=== PATIENT | female | born 1955 | race Two or more races ===

== ENCOUNTER 2018-05-19 15:37 | Inpatient (IN) | payer OTHER ==
[~2018-05-19] VITALS: Ht 162.6 cm; Wt 74.8 kg
--- OUTSIDE RECORDS SUMMARY | 2018-05-19 15:39 | XMS REPORT ---
Author Author Admin, [place] Organization [facility] Address [address] [place] [address] Phone Allergies, Adverse Reactions, Alerts Allergy Name Reaction Description Start Date Severity Status Provider CODEINE itch all over Mild Active Rosalie Hoover D.OBereket Conditions or Problems Problem Name Problem Code Onset Date Status Entry Date Provider Comment Standard Description Annotate Sinusitis - acute 461.9 Active Raina Gonzalez PMHNP Acute sinusitis, unspecified Colon cancer screening V76.51 Active Raina Gonzalez PMHNP Screening for malignant neoplasms of colon Annual exam V72.31 Active Felipa Nascimento MD Routine gynecological examination Mammogram yearly screening V76.12 Active Felipa Nascimento MD Other screening mammogram Prediabetes 790.29 Active Felipa Nascimento MD Other abnormal glucose Vaccination, flu V04.8 Active Felipa Nascimento MD Need for prophylactic vaccination and inoculation against other viral diseases Medication, termite treater helper use V58.6 Active Raina Gonzalez PMHNP Long-term (current) drug use Grief reaction 309.0 Active Felipa Nascimento MD Adjustment disorder with depressed mood Chronic kidney disease, unspecified 585.9 Active Felipa Nascimento MD Chronic kidney disease, unspecified Acid reflux disease 530.81 Active Deng Ryder MD Esophageal reflux Treated by Dr. Connor with omeperazole 40 mg po BID Elevated alkaline phosphatase 790.5 Active Deng Ryder MD Other nonspecific abnormal serum enzyme levels Hip region mass 719.65 Active Deng Ryder MD Other symptoms referable to joint of pelvic region and thigh Right side Renal cyst, right 593.2 Active Deng Ryder MD Cyst of kidney, acquired Incidental finding per Dr Coleman, requesting record of [place] Restrictive lung disease 518.89 Active Rosalie Tovar.O. Other diseases of lung, not elsewhere classified Headaches 784.0 Active Deng Ryder MD Headache Need for prophylactic vaccination against streptococcus pneumoniae (Pneumococcus) V03.82 Active Deng Ryder MD Need for prophylactic vaccination against Streptococcus pneumoniae [pneumococcus] NEED FOR PROPHYLACTIC VACCINATION AND INOCULATION, INFLUENZA V04.81 Active Deng Ryder MD Need for prophylactic vaccination and inoculation against influenza Shortness of breath 786.05 Active Deng Ryder MD Shortness of breath Anxiety disorder in conditions classified elsewhere 293.84 Active Marlon Doan MD Anxiety disorder in conditions classified elsewhere Major depressive disorder, recurrent episode, moderate degree 296.32 Active Marlon Doan MD Major depressive disorder, recurrent episode, moderate degree Obesity 278.00 Active Marlon Doan MD Obesity, unspecified Allergic rhinitis 477.9 Active Rosalie Tovar.OBereket Allergic rhinitis, cause unspecified Dyslipidemia 272.4 Active Rosalie Tovar.O. Other and unspecified hyperlipidemia Hypertension 401.9 Active Rosalie Tovar.Mary. Unspecified essential hypertension Need for prophylactic vaccination with unspecified combined vaccine V06.[address]ilar [facility] [employer] Need for prophylactic vaccination with unspecified combined vaccine Need for prophylactic vaccination with unspecified combined vaccine ICD-V06.9 Inactive Marcy Rodriguez BIBI Pneumonia ICD-486 Inactive eFlipa Nascimento MD Cough ICD-786.2 Inactive Felipa Nascimento MD Sinusitis, acute ICD-461.9 Inactive Felipa Nascimento MD Viral URI ICD-465.9 Inactive Juancarlos Menendez MD Rib pain, right sided ICD-786.50 Inactive Felipa Nascimento MD Pharyngitis, acute ICD-462 Inactive Felipa Nascimento MD Abdominal pain, epigastric ICD-789.06 Inactive Felipa Nascimento MD DIAGNOSIS DEFERRED, AXIS II ICD-799.9 Inactive Marlon Doan MD R/OPOLYSUBSTANCE DEPENDENCE ICD-304.80 Inactive Marlon Doan MD DEPRESSIVE DISORDER NOS ICD-311 Inactive Marlno Doan MD R/OANXIETY DISORDER NOS ICD-300.00 Inactive Marlon Doan MD Anxiety ICD-300.00 Inactive Marlon Doan MD Depression, major ICD-296.20 Inactive Marlon Doan MD Pneumonia 486 Resolved Felipa Nascimento MD Pneumonia, organism unspecified Cough 786.2 Resolved Felipa Nascimento MD Cough Sinusitis, acute 461.9 Resolved Felipa Nascimento MD Acute sinusitis, unspecified Viral URI 465.9 Resolved Juancarlos Menendez MD Acute upper respiratory infections of unspecified site Rib pain, right sided 786.50 Resolved Felipa Nascimento MD Unspecified chest pain Pharyngitis, acute 462 Resolved Felipa Nascimento MD Acute pharyngitis Abdominal pain, epigastric 789.06 Resolved Felipa Nascimento MD Abdominal pain, epigastric DIAGNOSIS DEFERRED, AXIS II 799.9 Resolved Marlon Doan MD Other unknown and unspecified cause of morbidity or mortality R/OPOLYSUBSTANCE DEPENDENCE 304.80 Resolved Marlon Doan MD Combinations of drug dependence excluding opioid type drug, unspecified use DEPRESSIVE DISORDER NOS 311 Resolved Marlon Doan MD Depressive disorder, not elsewhere classified R/OANXIETY DISORDER NOS 300.00 Resolved Marlon Doan MD Anxiety state, unspecified Anxiety 300.00 Resolved Marlon Doan MD Anxiety state, unspecified Depression, major 296.20 Resolved Marlon Doan MD Major depressive disorder, single episode, unspecified degree Medication List Medication Instructions Start Date Stop Date Generic Name NDC Status Provider Patient Instruction WELLBUTRIN XL 150 MG ORAL TABLET EXTENDED RELEASE 24 HOUR Take 1 tablet By Mouth QAM BUPROPION HCL 79967910460 Active Raina ZALDIVAR Active ATORVASTATIN CALCIUM 40 MG ORAL TABLET one tablet once daily ATORVASTATIN CALCIUM 64242379078 Active Felipa Nascimento MD Active CHLORDIAZEPOXIDE-AMITRIPTYLINE 5-12.5 MG ORAL TABLET Take 1/2 tablet By Mouth QHS As Needed CHLORDIAZEPOXIDE-AMITRIPTYLINE 10556407530 Active Raina ZALDIVAR Active BENTYL 10 MG ORAL CAPSULE one tablet four times daily DICYCLOMINE HCL 64927998450 Active Felipa Nascimento MD Active HYDROCHLOROTHIAZIDE 12.5 MG ORAL CAPSULE 1 by mouth every day HYDROCHLOROTHIAZIDE 96977715216 Active Felipa Nascimento MD Active LATUDA 60 MG ORAL TABLET Take 1 tablet By Mouth QPM with food LURASIDONE HCL 33885292045 Active Raina Gonzalez PMHNP Active PROAIR HFA 108 (90 Base) MCG/ACT INHALATION AEROSOL SOLUTION 2 puffs Every 4-6 hours As Needed for shortness of breath ALBUTEROL SULFATE 87086650640 Active Felipa Nascimento MD Active BUSPIRONE HCL 15 MG ORAL TABLET 1 tab By Mouth TID BUSPIRONE HCL 55447018958 Active Raina Gonzalez PMRUFINOP Active FLUOXETINE HCL 40 MG ORAL CAPSULE Take 2 tablets By Mouth QAM FLUOXETINE HCL 50842101299 Active Raina Gonzalez PMHNP Active FLONASE 50 MCG/ACT NASAL SUSPENSION 2 sprays each nostril every day FLUTICASONE PROPIONATE (NASAL) 51537422263 Active Felipa Nascimento MD Active OMEPRAZOLE 40 MG ORAL CAPSULE DELAYED RELEASE 1 By Mouth Every Day OMEPRAZOLE 34867956386 Active Juan J Armenta MD Active TAMIFLU 75 MG ORAL CAPSULE one tablet twice daily TAMIFLU 75 MG ORAL CAPSULE 435286 OSELTAMIVIR PHOSPHATE Inactive MIRTAZAPINE 15 MG ORAL TABLET Take 1 tablet By Mouth QHS MIRTAZAPINE 15 MG ORAL TABLET 164810 MIRTAZAPINE Inactive AZITHROMYCIN 250 MG ORAL TABLET 2 tablets by mouth on day one then one tablet by mouth each day for a total of 5 days AZITHROMYCIN 250 MG ORAL TABLET 056749 AZITHROMYCIN Inactive AMOXICILLIN-POT CLAVULANATE 500-125 MG ORAL TABLET 1 tab By Mouth Twice a Day x 10 days AMOXICILLIN-POT CLAVULANATE 500-125 MG ORAL TABLET 157515 AMOXICILLIN-POT CLAVULANATE Inactive BENZONATATE 100 MG ORAL CAPSULE 1 cap By Mouth Three Times a Day As Needed for cough BENZONATATE 100 MG ORAL CAPSULE 024373 BENZONATATE Inactive BACLOFEN 10 MG ORAL TABLET one tablet by mouth three times a day as needed for muscle spasm BACLOFEN 10 MG ORAL TABLET 944455 BACLOFEN Inactive CHLORDIAZEPOXIDE-AMITRIPTYLINE 10-25 MG ORAL TABLET Take 1/2 po qam and 1 tab By Mouth take at bedtime As Needed insomnia CHLORDIAZEPOXIDE- AMITRIPTYLINE 10-25 MG ORAL TABLET 490527 CHLORDIAZEPOXIDE-AMITRIPTYLINE Inactive CHLORDIAZEPOXIDE-AMITRIPTYLINE 5-12.5 MG ORAL TABLET 1 tab By Mouth take at bedtime As Needed insomnia [only 3 or 4 nights of the week] CHLORDIAZEPOXIDE- AMITRIPTYLINE 5-12.5 MG ORAL TABLET 935076 CHLORDIAZEPOXIDE-AMITRIPTYLINE Inactive RISPERDAL 0.5 MG ORAL TABLET Take 1 tablet By Mouth Twice a Day for hallucinations RISPERDAL 0.5 MG ORAL TABLET 112936 RISPERIDONE Inactive KEFLEX 250 MG ORAL CAPSULE 1 by mouth 4 times a day for infection. KEFLEX 250 MG ORAL CAPSULE 912981 CEPHALEXIN Inactive MEDROL 4 MG ORAL TABLET THERAPY PACK take as directed on dospak for anti-inflamatory effecct MEDROL 4 MG ORAL TABLET THERAPY PACK 288746 METHYLPREDNISOLONE Inactive PROZAC 40 MG ORAL CAPSULE Take 1 capsule By Mouth qam PROZAC 40 MG ORAL CAPSULE 504955 FLUOXETINE HCL Inactive PROZAC 20 MG ORAL CAPSULE take 1 tab By Mouth Every Morning PROZAC 20 MG ORAL CAPSULE 979149 FLUOXETINE HCL Inactive VISTARIL 25 MG ORAL CAPSULE take 1 tab By Mouth Four Times a Day As Needed VISTARIL 25 MG ORAL CAPSULE 649624 HYDROXYZINE PAMOATE Inactive SIMVASTATIN 40 MG ORAL TABLET 1 by mouth every night SIMVASTATIN 40 MG ORAL TABLET 684223 SIMVASTATIN Inactive BENTYL 20 MG ORAL TABLET 1 by mouth 4 times a day BENTYL 20 MG ORAL TABLET DICYCLOMINE HCL Inactive LOPID 600 MG ORAL TABLET 1 by mouth twice a day LOPID 600 MG ORAL TABLET 850920 GEMFIBROZIL Inactive METOPROLOL TARTRATE 25 MG ORAL TABLET 1 by mouth twice a day METOPROLOL TARTRATE 25 MG ORAL TABLET 131640 METOPROLOL TARTRATE Inactive PRINIVIL 20 MG ORAL TABLET 1 by mouth every day PRINIVIL 20 MG ORAL TABLET 623806 LISINOPRIL Inactive SERTRALINE HCL 100 MG ORAL TABLET SERTRALINE HCL 100 MG ORAL TABLET 047396 SERTRALINE HCL Inactive TAMIFLU 75 MG ORAL CAPSULE one tablet twice daily OSELTAMIVIR PHOSPHATE 22663557032 No Longer Active Raina Gonzalez PMHNP Active MIRTAZAPINE 15 MG ORAL TABLET Take 1 tablet By Mouth QHS MIRTAZAPINE 79632936344 No Longer Active Raina Gonzalez PMHNP Active AZITHROMYCIN 250 MG ORAL TABLET 2 tablets by mouth on day one then one tablet by mouth each day for a total of 5 days AZITHROMYCIN 25112618763 No Longer Active Felipa Nascimento MD Active AMOXICILLIN-POT CLAVULANATE 500-125 MG ORAL TABLET 1 tab By Mouth Twice a Day x 10 days AMOXICILLIN-POT CLAVULANATE 90531253979 No Longer Active Felipa Nascimento MD Active BENZONATATE 100 MG ORAL CAPSULE 1 cap By Mouth Three Times a Day As Needed for cough BENZONATATE 91590133040 No Longer Active Felipa Nascimento MD Active BACLOFEN 10 MG ORAL TABLET one tablet by mouth three times a day as needed for muscle spasm BACLOFEN 86584961668 No Longer Active Raina Gonzalez HNP Active CHLORDIAZEPOXIDE-AMITRIPTYLINE 10-25 MG ORAL TABLET Take 1/2 po qam and 1 tab By Mouth take at bedtime As Needed insomnia CHLORDIAZEPOXIDE-AMITRIPTYLINE 41780865525 No Longer Active Raina REYNAGAHNP Active CHLORDIAZEPOXIDE-AMITRIPTYLINE 5-12.5 MG ORAL TABLET 1 tab By Mouth take at bedtime As Needed insomnia [only 3 or 4 nights of the week] CHLORDIAZEPOXIDE-AMITRIPTYLINE 97135382911 No Longer Active Marlon Doan MD Active RISPERDAL 0.5 MG ORAL TABLET Take 1 tablet By Mouth Twice a Day for hallucinations RISPERIDONE 68275526460 No Longer Active Marlon Doan MD Active KEFLEX 250 MG ORAL CAPSULE 1 by mouth 4 times a day for infection. CEPHALEXIN 69526087921 No Longer Active Deng Ryder MD Active MEDROL 4 MG ORAL TABLET THERAPY PACK take as directed on dospak for anti-inflamatory effecct METHYLPREDNISOLONE 74166429224 No Longer Active Deng Ryder MD Active PROZAC 40 MG ORAL CAPSULE Take 1 capsule By Mouth qam FLUOXETINE HCL 86703776243 No Longer Active Marlon Doan MD Active PROZAC 20 MG ORAL CAPSULE take 1 tab By Mouth Every Morning FLUOXETINE HCL 37794559303 No Longer Active Latha Ogunmokun Active VISTARIL 25 MG ORAL CAPSULE take 1 tab By Mouth Four Times a Day As Needed HYDROXYZINE PAMOATE 10973561192 No Longer Active Latha Ogunmokun Active ZOLOFT 50 MG ORAL TABLET take 3 tab By Mouth Every Morning SERTRALINE HCL 40487091671 No Longer Active Latha Ogunmokun Active SIMVASTATIN 40 MG ORAL TABLET 1 by mouth every night SIMVASTATIN 50090471530 No Longer Active Felipa Nascimento MD Active BENTYL 20 MG ORAL TABLET 1 by mouth 4 times a day DICYCLOMINE HCL 48810972181 No Longer Active Felipa Nascimento MD Active LOPID 600 MG ORAL TABLET 1 by mouth twice a day GEMFIBROZIL 64130914889 No Longer Active Marlon Doan MD Active METOPROLOL TARTRATE 25 MG ORAL TABLET 1 by mouth twice a day METOPROLOL TARTRATE 76006106946 No Longer Active Yanelis Park MD Active PRINIVIL 20 MG ORAL TABLET 1 by mouth every day LISINOPRIL 71493650480 No Longer Active Marlon Doan MD Active SERTRALINE HCL 100 MG ORAL TABLET SERTRALINE HCL 91142074063 No Longer Active Yanelis Park MD Active Immunizations Vaccine Administration Date Value Standard Description influenza immunization (Flu Vax) has been administered given influenza virus vaccine, unspecified formulation influenza immunization (Flu Vax) has been administered given influenza virus vaccine, unspecified formulation influenza immunization (Flu Vax) has been administered given influenza virus vaccine, unspecified formulation pneumococcal immunization administered given pneumococcal polysaccharide vaccine, 23 valent Tetanus toxoid, reduced diphtheria toxoid and acellular Pertussis vaccine, absorbed (TdaP) given given tetanus toxoid, reduced diphtheria toxoid, and acellular pertussis vaccine, adsorbed varicella shingles vaccine given varicella virus vaccine influenza immunization (Flu Vax) has been administered given influenza virus vaccine, unspecified formulation Vital Signs Date Name Value Unit Range Description blood pressure, diastolic 84 mm[Hg] BP koenig blood pressure, systolic 142 mm[Hg] BP sys height E&M 64 [in_us] Bdy height pulse rate E&M 121 /min Heart rate weight E&M 178.50 [lb_av] Weight Measured blood pressure, diastolic, second observation 117 mm[Hg] BP koenig blood pressure, diastolic 96 mm[Hg] BP koenig blood pressure, systolic, second observation 170 mm[Hg] BP sys blood pressure, systolic 164 mm[Hg] BP sys height E&M 64 [in_us] Bdy height pulse rate E&M 86 /min Heart rate respiratory rate E&M 18 /min Resp rate temperature E&M 98.2 [degF] Body temperature weight E&M 183.40 [lb_av] Weight Measured blood pressure, diastolic 89 mm[Hg] BP koenig blood pressure, systolic 139 mm[Hg] BP sys height E&M 64 [in_us] Bdy height pulse rate E&M 86 /min Heart rate weight E&M 197 [lb_av] Weight Measured blood pressure, diastolic 80 mm[Hg] BP koenig blood pressure, systolic 132 mm[Hg] BP sys height E&M 64 [in_us] Bdy height pulse rate E&M 87 /min Heart rate respiratory rate E&M 18 /min Resp rate temperature E&M 98.4 [degF] Body temperature weight E&M 200.20 [lb_av] Weight Measured blood pressure, diastolic 85 mm[Hg] BP koenig blood pressure, systolic 136 mm[Hg] BP sys height E&M 64 [in_us] Bdy height pulse rate E&M 93 /min Heart rate respiratory rate E&M 18 /min Resp rate temperature E&M 98.4 [degF] Body temperature weight E&M 207.40 [lb_av] Weight Measured blood pressure, diastolic 84 mm[Hg] BP koenig blood pressure, systolic 120 mm[Hg] BP sys height E&M 64 [in_us] Bdy height pulse rate E&M 91 /min Heart rate weight E&M 209 [lb_av] Weight Measured Diagnostic Results Date Name Value Unit Range Description Lab Report: CBC With Differential/Platelet, Comp. Metabolic Panel (14), ... - Chemistry thyroid stimulating hormone, serum 1.960 u[iU]/mL 0.450-4.500 Lab Report: Comp. Metabolic Panel (14), Lipid Panel, Hemoglobin A1c - Chemistry very low density lipoproteins 31 mg/dL 5-40 chloride, serum 100 mmol/L 96-106 urea nitrogen, blood 15 mg/dL 8-27 Lab Report: CBC With Differential/Platelet, Comp. Metabolic Panel (14), ... - Hematology mean corpuscular hemoglobin concentration, RBC 31.8 G/DL % 31.5-35.7 erythrocyte (RBC) count 4.56 X10E6/UL 10*6/mm3 3.77-5.28 Lab Report: CBC With Differential/Platelet, Comp. Metabolic Panel (14), ... - Chemistry Absolute Neutrophils 3.7 X10E3/UL 10*3/uL 1.4-7.0 Lab Report: Comp. Metabolic Panel (14), Lipid Panel, Sedimentation Rate- ... - Hematology erythrocyte sedimentation rate 4 mm/h 0-40 Lab Report: Comp. Metabolic Panel (14), Lipid Panel, Hemoglobin A1c - Chemistry LDL cholesterol, serum 89 mg/dL 0-99 urea nitrogen/creatinine ratio, serum 14 12-28 Lab Report: CBC With Differential/Platelet, Comp. Metabolic Panel (14), ... - Hematology mean corpuscular volume, RBC 86 fL 79-97 Lab Report: Comp. Metabolic Panel (14), Lipid Panel, Hemoglobin A1c - Chemistry HDL cholesterol, serum 66 mg/dL >39 Lab Report: CBC With Differential/Platelet, Comp. Metabolic Panel (14), ... - Hematology monocytes as percent of blood leukocytes 8 % Lab Report: Comp. Metabolic Panel (14), Lipid Panel, Hemoglobin A1c - Chemistry albumin/globulin ratio, serum 2.0 1.2-2.2 creatinine, serum 1.11 mg/dL 0.57-1.00 cholesterol, serum 186 mg/dL 045-164 2334/10/26 bilirubin, serum, total <0.2 mg/dL mg/dL 0.0-1.2 Lab Report: CBC With Differential/Platelet, Comp. Metabolic Panel (14), ... - Hematology Eosinophil Absolute Count 0.3 X10E3/UL 10*3/uL 0.0-0.4 Lab Report: Comp. Metabolic Panel (14), Lipid Panel, Hemoglobin A1c - Chemistry aspartate aminotransferase (SGOT), serum 31 U/L 0-40 Lab Report: CBC With Differential/Platelet, Comp. Metabolic Panel (14), ... - Hematology red blood cell distribution width 15.6 % 12.3-15.4 leukocyte count, blood 6.6 X10E3/UL 10*3/mm3 3.4-10.8 Lab Report: Comp. Metabolic Panel (14), Lipid Panel, Hemoglobin A1c - Chemistry potassium, serum 4.3 mmol/L 3.5-5.2 albumin, serum 4.3 g/dL 3.6-4.8 Lab Report: CBC With Differential/Platelet, Comp. Metabolic Panel (14), ... - Chemistry immature granulocytes, percentage of total cells, blood 0 % Lab Report: CBC With Differential/Platelet, Comp. Metabolic Panel (14), ... - Hematology lymphocyte count, blood, automated 2.0 X10E3/UL 10*3/mm3 0.7-3.1 hematocrit, blood 39.3 % 34.0-46.6 Lab Report: Comp. Metabolic Panel (14), Lipid Panel, Hemoglobin A1c - Chemistry sodium, serum 142 mmol/L 134-144 Lab Report: CBC With Differential/Platelet, Comp. Metabolic Panel (14), ... - Hematology neutrophils as percent of blood leukocytes 57 % basophils as percent of blood leukocytes 1 % Lab Report: Comp. Metabolic Panel (14), Lipid Panel, Hemoglobin A1c - Chemistry carbon dioxide, venous blood 24 mmol/L 20-29 triglyceride, serum, fasting 155 mg/dL 0-149 calcium, serum 9.2 mg/dL 8.7-10.3 alanine aminotransferase (SGPT), serum 31 U/L 0-32 Lab Report: CBC With Differential/Platelet, Comp. Metabolic Panel (14), ... - Hematology mean corpuscular hemoglobin, RBC 27.4 pg 26.6-33.0 Lab Report: Comp. Metabolic Panel (14), Lipid Panel, Hemoglobin A1c - Chemistry protein, total, serum 6.5 g/dL 6.0-8.5 alkaline phosphatase, serum 127 U/L 39-117 Lab Report: CBC With Differential/Platelet, Comp. Metabolic Panel (14), ... - Hematology hemoglobin, blood 12.5 g/dL 11.1-15.9 Lab Report: Comp. Metabolic Panel (14), Lipid Panel, Sedimentation Rate- ... - Chemistry c-reactive protein, quantitative, serum 1.0 mg/L 0.0-4.9 Lab Report: CBC With Differential/Platelet, Comp. Metabolic Panel (14), ... - Hematology lymphocytes as percent of blood leukocytes 30 % Lab Report: Comp. Metabolic Panel (14), Lipid Panel, Hemoglobin A1c - Chemistry hemoglobin A1C, blood, as % of total hemoglobin 5.9 % 4.8-5.6 Lab Report: Comp. Metabolic Panel (14), Lipid Panel, Hemoglobin A1c - Genetics/fertility eGFR if 61 mL/min/1.73m2 >59 Lab Report: CBC With Differential/Platelet, Comp. Metabolic Panel (14), ... - Hematology basophil count, absolute 0.0 x10E3/uL 0.0-0.2 Lab Report: Comp. Metabolic Panel (14), Lipid Panel, Hemoglobin A1c - Chemistry globulin, serum 2.2 1.5-4.5 Estimated Glomerular Filtration Rate (calc) 53 mL/min/1.73m2 >59 Lab Report: CBC With Differential/Platelet, Comp. Metabolic Panel (14), ... - Chemistry thyroxine, serum, total 5.6 ug/dL 4.5-12.0 triiodothyronine (T3), serum 91 ng/dL 71-180 Lab Report: CBC With Differential/Platelet, Comp. Metabolic Panel (14), ... - Hematology eosinophils as percent of blood leukocytes 4 % Lab Report: Comp. Metabolic Panel (14), Lipid Panel, Hemoglobin A1c - Chemistry blood glucose, random 85 mg/dL 65-99 Lab Report: CBC With Differential/Platelet, Comp. Metabolic Panel (14), ... - Hematology monocyte count, blood, automated 0.5 X10E3/UL 10*3/uL 0.1-0.9 platelet count 259 X10E3/UL 10*3/mm3 150-379 Encounters Date Encounter Provider Code Facility 13:49:44 [employer] PRESCRIPTION CLERK Est Patient Exp Problem - 80456 Raina Gonzalez PMHNP CPT-73432 [facility] 07:57:38 [employer] PRESCRIPTION CLERK Est Patient Nurse - Only Visit - 29847 Letitia LEWISN CPT-76827 [facility] 16:00:52 [employer] PRESCRIPTION CLERK Ofc Vst, Est Level III Felipa Nascimento MD CPT-12403 [facility] 11:36:37 CDT Est Patient Exp Problem - 05197 Felipa Nascimento MD CPT-71785 [facility] 17:56:32 CDT Est Patient Exp Problem - 17222 Raina Gonzalez PMHNP CPT-87886 [facility] 14:50:52 [employer] PRESCRIPTION CLERK Est Patient Exp Problem - 94134 Raina Gonzalez PMHNP CPT-66445 [facility] 17:19:42 [employer] AND [employer] PRESCRIPTION CLERK Est Patient Exp Problem - 81136 Raina Gonzalez PMHNP CPT-72563 [facility] 14:36:37 CDT Est Patient Detailed - 64881 Raina Gonzalez PMHNP CPT-50649 [facility] 13:14:01 CDT Est Patient Exp Problem - 77466 Felipa Nascimento MD CPT-50262 [facility] 12:07:25 CDT Est Patient Exp Problem - 02564 Raina Gonzalez PMHNP CPT-88052 [facility] 13:10:06 CDT Est Patient Detailed - 11039 Felipa Nascimento MD CPT-76499 [facility] 14:38:14 CDT Est Patient Exp Problem - 39423 Raina Carlos HN CPT-33438 [facility] 16:15:35 [employer] PRESCRIPTION CLERK Est Patient Exp Problem - 79822 Felipa Nascimento MD CPT-36817 [facility] 13:44:48 [employer] PRESCRIPTION CLERK Est Patient Exp Problem - 98122 Marlon Doan MD CPT-61354 [facility] 17:26:36 [employer] PRESCRIPTION CLERK Est Patient Exp Problem - 74708 Felipa Nascimento MD CPT-51651 [facility] 15:56:28 [employer] PRESCRIPTION CLERK Est Patient Exp Problem - 83333 Marlon Doan MD CPT-48750 [facility] 15:23:54 CDT Est Patient Exp Problem - 25734 Marlon Doan MD CPT-97775 [facility] 14:37:27 CDT Est Patient Exp Problem - 22820 Marlon Doan MD CPT-74217 [facility] 10:41:12 CDT Est Patient Problem Focus - 83430 Felipa Nascimento MD CPT-50103 [facility] 15:36:56 CDT Est Patient Exp Problem - 73028 Marlon Doan MD CPT-68034 [facility] 10:01:07 CDT Est Patient Exp Problem - 57527 Juancarlos Menendez MD CPT-88685 [facility] 12:34:46 CDT Est Patient Exp Problem - 72465 Marlon Doan MD CPT-78995 [facility] 10:45:48 [employer] PRESCRIPTION CLERK Est Patient Problem Focus - 57288 Marlon Doan MD CPT-31596 [facility] 11:58:17 [employer] PRESCRIPTION CLERK Est Patient Exp Problem - 20460 Zulema Montemayor MD CPT-16716 [facility] 15:35:52 [employer] PRESCRIPTION CLERK Est Patient Exp Problem - 08044 Raina Trotter DO CPT-68477 [facility] 10:55:45 [employer] PRESCRIPTION CLERK Est Patient Problem Focus - 16032 Marlon Doan MD CPT-52094 [facility] 23:15:19 [employer] PRESCRIPTION CLERK Est Patient Exp Problem - 09879 Yanelis Park MD CPT-66039 [facility] 15:51:59 [employer] PRESCRIPTION CLERK Est Patient Exp Problem - 88730 Deng Ryder MD CPT-88700 [facility] 10:31:08 CDT Est Patient Problem Focus - 83115 Marlon Doan MD CPT-71226 [facility] 14:58:46 CDT Est Patient Exp Problem - 14750 Hayder Kaur MD CPT-99938 [facility] 16:31:15 CDT Est Patient Problem Focus - 57596 Marlon Doan MD CPT-27264 [facility] 14:38:15 CDT Est Patient Exp Problem - 02851 Latha Ogunmogarryun CPT-48999 [facility] 14:53:37 CDT Est Patient Detailed - 20933 Yanelis Park MD CPT-08456 [facility] 18:23:35 CDT Est Patient Exp Problem - 90102 Rosalie Hoover D.O. CPT-67085 [facility] Procedures Code Procedure Name Date Entry Date Standard Description CPT-99810 INFLUENZA VACCINE QUADRIVALENT 3 YRS PLUS IM 07:57:39 LENS AND FRAMES PRESCRIPTION CLERK CPT-53247 Admin of Vaccine - Injection - 1 07:57:39 LENS AND FRAMES PRESCRIPTION CLERK CPT-06160 INFLUENZA VACCINE QUADRIVALENT 3 YRS PLUS IM 16:17:52 LENS AND FRAMES PRESCRIPTION CLERK CPT-78894 Est Patient Well Exam (40 - 64 Yrs) - 31052 16:17:49 LENS AND FRAMES PRESCRIPTION CLERK CPT-04805 TDAP 14:35:28 LENS AND FRAMES PRESCRIPTION CLERK CPT-15392 Zoster - Shingles 14:35:28 LENS AND FRAMES PRESCRIPTION CLERK CPT-53168 Pneumovax Vaccine PPSV23 14:35:28 LENS AND FRAMES PRESCRIPTION CLERK CPT-61424 INFLUENZA VACCINE QUADRIVALENT 3 YRS PLUS IM 14:34:43 LENS AND FRAMES PRESCRIPTION CLERK CPT-91440 BRNCDILAT RSPSE SPMTRY PRE&POST-BRNCDILAT ADMN 15:35:54 LENS AND FRAMES PRESCRIPTION CLERK CPT-67999 Prevnar (PCV13) IM 15:52:05 LENS AND FRAMES PRESCRIPTION CLERK CPT-76064 Influenza - Adult - Injection 15:52:05 LENS AND FRAMES PRESCRIPTION CLERK CPT-75709 Diagnostic evaluation with medical - 16054 17:07:48 CDT
[2018-05-19] MEDS ORDERED: SODIUM CHLORIDE 0.9% 1000ML 1,000 ML IV STA (16:02)
[2018-05-19 16:36] LABS: BILIRUBIN,URINE 1+ (NEGATIVE); CLARITY,URINE SL CLOUDY (CLEAR); COLOR,URINE YELLOW (YELLOW); KETONES,URINE TRACE (NEGATIVE); LEUKOCYTE ESTERASE ,URINE TRACE (NEGATIVE); NITRITE,URINE NEGATIVE (NEGATIVE); PROTEIN,URINE DIPSTICK 1+ (NEGATIVE); URINE UROBILINOGEN 0.2 mg/dL (0.2 - 1)
[2018-05-19 16:38] LABS: BASOPHILS % 0.4 % (0.0-1.0); EOSINOPHILS # (AUTO) 0.1 (0.0-0.4); EOSINOPHILS % 0.9 % (0.0-6.0); HEMATOCRIT 42.8 % (34.2-44.1); HEMOGLOBIN 14.3 g/dL (12.0-16.0); LYMPHOCYTES % 20.1 % (18.0-39.1); MEAN CORPUSCULAR HEMOGLOBIN 28.7 pg (28-32); MEAN CORPUSCULAR HGB CONC 33.4 g/dL (31-35); MEAN CORPUSCULAR VOLUME 85.9 fL (81-99); MONOCYTES # (AUTO) 0.8 (0.2-0.8); MONOCYTES % 7.4 % (4.4-11.3); NEUTROPHILS # (AUTO) 7.2 (2.1-6.9); NEUTROPHILS % 70.7 % (38.7-80.0); PLATELET COUNT 286 x10e3/uL (140-360); RED BLOOD COUNT 4.98 x10e6/uL (3.6-5.1); RED CELL DISTRIBUTION WIDTH 14.6 % (11.7-14.4)
[2018-05-19 16:47] LABS: INR 0.87; PROTHROMBIN TIME 12.6 seconds (11.9-14.5)
[2018-05-19 16:48] LABS: PARTIAL THROMBOPLASTIN TIME 24.1 seconds (23.8-35.5)
[2018-05-19 16:57] LABS: ALBUMIN 3.9 g/dL (3.5-5.0); ALBUMIN/GLOBULIN RATIO 1.3 (0.8-2.0); ANION GAP 15.3 mmol/L (8-16); CALCIUM 10.2 mg/dL (8.4-10.2); CREATININE, SERUM 1.73 mg/dL (0.57-1.11); POTASSIUM 3.3 mmol/L (3.5-5.1)
[2018-05-19 16:59] LABS: WBC,URINE (MAN) 0-5 /HPF (0-5)
[2018-05-19 17:00] LABS: AMORPHOUS SEDIMENT,URINE MANY (FEW); BACTERIA,URINE MODERATE /HPF; EPITHELIAL CELLS,URINE MANY /LPF; MUCUS,URINE MANY (RARE); TRANSITIONAL EPI CELLS,URINE MODERATE
[2018-05-19 17:18] LABS: CREATINE KINASE MB 0.7 ng/mL (0-5.0); THYROID STIMULATING HORMONE 2.046 uIU/mL (0.350-4.940)
--- NOTE | 2018-05-19 17:50 | Diagnostic Imaging Report ---
EXAMINATION: CHEST 2 VIEWS INDICATION: ^SOB ^[id number] ^1730 COMPARISON: None FINDINGS: PA and lateral views TUBES and LINES: None. LUNGS: Lungs are well inflated. There is no evidence of pneumonia or pulmonary edema. Biapical scarring. PLEURA: No pleural effusion or pneumothorax. HEART AND MEDIASTINUM: The cardiomediastinal silhouette is unremarkable. BONES AND SOFT TISSUES: No acute osseous lesion. Soft tissues are unremarkable. UPPER ABDOMEN: No free air under the diaphragm. IMPRESSION: No acute thoracic abnormality. Signed by: Dr. Jose Guadalupe Kerr MD on 05/19/2018 5:47 PM
[2018-05-19] MEDS ORDERED: SODIUM CHLORIDE 0.9% 1000ML 1,000 ML IV SCH (18:15)
[2018-05-19] MEDS ORDERED: NITROGLYCERIN 0.4 MG SUBL SL ONE (18:15)
--- NOTE | 2018-05-19 18:47 | NUR ---
nitro paste to right chest wall 100/66 98 97%
[2018-05-19] MEDS ORDERED: NITROGLYCERIN 2% OINT 1 GM PKT ONE (18:54)
[2018-05-19] MEDS ORDERED: NITROGLYCERIN 2% OINT 1 GM PKT TOP ONE (19:15)
[2018-05-19] MEDS ORDERED: ASPIRIN 81 MG CHEW TAB PO ONE (19:30)
[2018-05-19] MEDS ORDERED: MORPHINE SULFATE 2 MG/ML SYR 1ML IV PRN (19:30)
[2018-05-19] MEDS ORDERED: NITROGLYCERIN 0.4 MG SUBL SL PRN (19:30)
--- OUTSIDE RECORDS SUMMARY | 2018-05-19 20:15 | XMS REPORT ---
Author Author [facility] Address Unknown Phone Unavailable Care Team Providers Care Medicare Specialist Name Role Phone Madhuri ELLIS Unavailable Unavailable Problems This patient has no known problems. Allergies, Adverse Reactions, Alerts This patient has no known allergies or adverse reactions. Medications This patient has no known medications. Results Test Description Test Time Test Comments Text Results Atomic Results Result Comments CHEST 2 VIEWS 2018-05-19 17:46:00 [facility] [address] [address] Patient Name: SHARDA JADE MR #: [id number] : 1955 Age/Sex: 62/F Req #: [id number] Adm Physician: Ordered by: YELENA ELLIS MD Report #: [id number] Location: ER Room/Bed: Procedure: [id number] DX/CHEST 2 VIEWS Exam Date: 05/19/18 Exam Time: 1730 REPORT STATUS: Signed EXAMINATION: CHEST 2 VIEWS INDICATION: SOB [id number] COMPARISON: None FINDINGS: PA and lateral views TUBES and LINES: None. LUNGS: Lungs are well inflated. There is no evidence of pneumonia or pulmonary edema. Biapical scarring. PLEURA: No pleural effusion or pneumothorax. HEART AND MEDIASTINUM: The cardiomediastinal silhouette is unremarkable. BONES AND SOFT TISSUES: No acute osseous lesion. Soft tissues are unremarkable. UPPER ABDOMEN: No free air under the diaphragm. IMPRESSION: No acute thoracic abnormality. Signed by: Dr. Jose Guadalupe Kerr MD on 05/19/2018 5:47 PM Dictated By: JOSE GUADALUPE KERR MD 46 Transcribed By: GIGI on 05/19/181746 COPY TO: YELENA ELLIS MD
[2018-05-19] MEDS ORDERED: ZOLPIDEM TARTRATE 10 MG TAB PO PRN (20:30)
--- NOTE | 2018-05-19 21:42 | Diagnostic Imaging Report ---
CT chest without enhancement CPT code: 76986 INDICATION: Shortness of breath TECHNIQUE: Thin collimation axial images obtained from the thoracic inlet to the level of the diaphragm without intravenous contrast. Dose reduction techniques used: Automated exposure control, adjustment of the mAs and/or kVp according to patient size, standardized low-dose protocol, and/or iterative reconstruction technique. RADIATION DOSE: Total DLP: 512.78 mGy*cm Estimated effective dose: (DLP x 0.015 x size factor) mSv CTDIvol has been reviewed. It is below the limits set by the Radiation Protocol Committee (RPC). COMPARISON: Chest x-ray 05/19/2018. CHEST FINDINGS: Lymph nodes: No enlarged axillary, supraclavicular, mediastinal, or hilar lymph nodes. Thyroid: Normal in size without mass in the visualized parenchyma.. Mediastinum: The heart is normal in size. The ascending aorta measures 3.2 cm. The main pulmonary artery measures 2.5 cm. There is a tiny simple pericardial effusion. Mild burden of coronary artery atherosclerosis. The esophagus is normal. Lungs: Right: Minimal apical pleural-parenchymal thickening. Air-containing cyst in the apex measures 7 mm. No significant air trapping. Pleural-based nodule in the lateral upper lobe measures 3 mm (series 3, image 23). No infiltrate. Left: Minimal apical pleural-parenchymal thickening. No significant air trapping. 1 to 2 mm pleural-based nodule in the lateral lower lobe (series 3, image 75). No infiltrates. Pleura: No pleural effusion or pleural based mass. Airways: Mild diffuse calcifications. No filling defects. No mural thickening ABDOMEN FINDINGS: The gallbladder is absent. No mass or lymphadenopathy in the visualized portions. Bones: Mild degenerative changes. Trace levoscoliosis the mid lumbar spine may be positional. No lytic or blastic lesions. Soft tissues: Unremarkable. IMPRESSION: 1. No infiltrates or areas of air trapping. 2. Tiny pulmonary nodules as described above. Recommend annual surveillance with low-dose CT of the chest if there are risk factors for malignancy. 3. Minimal burden of coronary artery atherosclerosis. Signed by: Dr. Ana Silva MD on 05/19/2018 9:39 PM
--- NOTE | 2018-05-19 21:56 | History and Physical ---
CHIEF COMPLAINT: Dyspnea. HISTORY OF PRESENT ILLNESS: The patient is a 62-year-old woman. She notes gradually worsening dyspnea over a period of months to years. It has been particularly bad over the past several months. She notes mild cough. She does not complain of fevers. She has no weight loss. She does have some phlegm production. The patient also has chronic abdominal pain. She denies any nausea or vomiting, but frequently feels heartburn and indigestion. She was at Dr. Coleman's office today when she became very short of breath and they recommended she go to the emergency department. PAST SURGICAL HISTORY: 1. Status post appendectomy. 2. Status post cholecystectomy. 3. Status post hysterectomy. PAST MEDICAL HISTORY: 1. Hypertension. 2. No prior history of asthma or documented COPD. SOCIAL HISTORY: The patient was a light smoker and quit about 10 years ago. She is not an active drinker. FAMILY HISTORY: Family history is noncontributory. ALLERGIES: THERE WERE NO KNOWN DRUG ALLERGIES. REVIEW OF SYSTEMS: The patient denies headache or fevers. She is having no neck pain. She has no sore throat. She does note some phlegm production. She is not having chest pain. She does note dyspnea and mild cough. She notes some back pain. There is some chronic abdominal pain, but no nausea or vomiting. She has no leg edema. PHYSICAL EXAMINATION: VITAL SIGNS: The patient is afebrile. The blood pressure is 100/66 and the pulse is 95. HEENT: Shows no facial swelling or erythema. The nasal mucosa is normal. The oropharynx is normal. LYMPHATIC: Shows no submandibular, cervical, or supraclavicular adenopathy. CARDIAC: Reveals regular rate and rhythm with normal S1 and S2. There are no murmurs or rubs. LUNGS: Auscultation of lung shows clear breath sounds bilaterally. There is a mild wheeze. There is some prolonged expiratory phase. ABDOMEN: Shows some mild distention. There is no rebound or guarding. There is no tenderness. EXTREMITIES: The patient has no leg edema. NEUROLOGIC: There are no focal neurological abnormalities. LABORATORY DATA: The BUN to creatinine ratio is 21 to 1.73. The tox screen is 3.3. The white blood cell count is 10 and hemoglobin is 14.3. The platelet count is 286. RADIOGRAPHIC DATA: Chest x-ray shows no active disease. IMPRESSION: 1. Dyspnea of unclear etiology. 2. Hypertension. 3. Chronic abdominal pain. 4. Gastroesophageal reflux. PLAN: 1. The patient will have cardiac enzymes and serial EKGs. 2. Echocardiogram and cardiology consultation. 3. CT scan of the chest. 4. The patient will need PFTs either in the hospital or as an outpatient to evaluate for any underlying COPD. 5. IV fluids. MD SKYLER Mahan/REHAN /[id number]
[2018-05-19] MEDS: ONDANSETRON HCL INJ 2MG/ML 2ML 2 MG/ML VIAL IV PRN (22:30)
[2018-05-19] MEDS: MORPHINE SULFATE INJ 4 MG/ML INJ 1ML IV PRN (22:30)
[2018-05-19] MEDS: FAMOTIDINE 20 MG TAB PO SCH (22:30)
[2018-05-19] MEDS: SODIUM CHLORIDE 0.9% 1000ML 1,000 ML IV SCH (22:30)
--- NOTE | 2018-05-19 23:11 | NUR ---
PATIENT RECEIVED FROM EMERGENCY DEPARTMENT PER STRETCHER AT 2235. SHE'S ALERT AND ORIENTED X4, NO RESPIRATORY DISTRESS OBSERVED. SKIN INTEGRITY INTACT, NO EDEMA NOTED TO THE EXTREMITIES. SHE C/O PAIN TO THE CHEST AND BACK WITH PAIN SCORE #5, SHE WAS MEDICATED FOR PAIN IN THE ER PRIOR TO COMING TO THIS UNIT. CALL LIGHT WITHIN EASY REACH, PATIENT ORIENTED TO SURROUNDINGS, BED ALARM ON.
[2018-05-19 23:20] VITALS: BP 138/79
[2018-05-19 23:32] VITALS: BP 117/68
[2018-05-20] VITALS (8 sets, daily range): BP systolic 109–136; BP diastolic 55–79
[2018-05-20] MEDS: ALBUTEROL/IPRATROPIUM 3 ML NEB NEB SCH ×4 (01:40→21:30)
--- NOTE | 2018-05-20 03:15 | NUR ---
PATIENT IS SOUNDLY ASLEEP, NO RESPIRATORY DISTRESS OR SIGN OF PAIN OBSERVED. BED ALARM ON, CALL LIGHT WITHIN EASY REACH.
[2018-05-20] MEDS: SODIUM CHLORIDE 0.9% 1000ML 1,000 ML IV SCH ×3 (05:50→20:48)
[2018-05-20] MEDS: MORPHINE SULFATE INJ 4 MG/ML INJ 1ML IV PRN ×3 (05:59→22:10)
[2018-05-20] MEDS: ONDANSETRON HCL INJ 2MG/ML 2ML 2 MG/ML VIAL IV PRN (06:00)
[2018-05-20] MEDS: NITROGLYCERIN 2% OINT 1 GM PKT TOP SCH ×2 (06:00)
[2018-05-20 06:08] LABS: BASOPHILS % 0.6 % (0.0-1.0); EOSINOPHILS # (AUTO) 0.3 (0.0-0.4); HEMATOCRIT 31.7 % (34.2-44.1); HEMOGLOBIN 10.4 g/dL (12.0-16.0); LYMPHOCYTES # (AUTO) 1.5 (1.0-3.2); LYMPHOCYTES % 30.7 % (18.0-39.1); MEAN CORPUSCULAR HGB CONC 32.8 g/dL (31-35); MEAN CORPUSCULAR VOLUME 88.3 fL (81-99); MONOCYTES # (AUTO) 0.5 (0.2-0.8); MONOCYTES % 10.4 % (4.4-11.3); NEUTROPHILS # (AUTO) 2.6 (2.1-6.9); NEUTROPHILS % 52.9 % (38.7-80.0); PLATELET COUNT 168 x10e3/uL (140-360); RED BLOOD COUNT 3.59 x10e6/uL (3.6-5.1); RED CELL DISTRIBUTION WIDTH 14.8 % (11.7-14.4)
[2018-05-20 06:42] LABS: CHOL/HDL RATIO 2.7 (3.0-3.6)
[2018-05-20 07:00] LABS: ALBUMIN 2.9 g/dL (3.5-5.0); ALBUMIN/GLOBULIN RATIO 1.4 (0.8-2.0); CALCIUM 8.4 mg/dL (8.4-10.2); CREATININE, SERUM 1.28 mg/dL (0.57-1.11)
[2018-05-20 07:08] LABS: CREATINE KINASE MB 1.3 ng/mL (0-5.0)
[2018-05-20] MEDS ORDERED: POTASSIUM CHLORIDE 20 MEQ TAB CR PO STA (08:39)
[2018-05-20] MEDS ORDERED: DOXYCYCLINE 100MG/NS 100ML 100 ML IV SCH (08:45)
[2018-05-20] MEDS ORDERED: METHYLPREDNISOLONE SOD SUCC 40 MG/ML VIAL 1ML IV ONE (08:45)
[2018-05-20] MEDS ORDERED: ASPIRIN 81 MG ENTERIC COATED PO SCH (09:00)
[2018-05-20] MEDS: FAMOTIDINE 20 MG TAB PO SCH ×2 (09:37→20:44)
[2018-05-20] MEDS ORDERED: ACETAMINOPHEN 325 MG TAB PO PRN ×2 (10:30→12:15)
--- NOTE | 2018-05-20 11:20 | NUR ---
RECD PT FROM RM 108,VIA W/C DENIES PAIN,IV INFUSING TO RT AC PATENT
--- NOTE | 2018-05-20 11:49 | Progress Note ---
DATE: Pulmonary Critical Care Progress Note SUBJECTIVE: The patient notes some improvement with IV fluids and breathing treatments. She has slightly less dyspnea and slightly less fatigue. PHYSICAL EXAMINATION: VITAL SIGNS: Blood pressure is 122/57 and the pulse is 104. The patient is afebrile. HEENT: Shows no facial swelling or erythema. Oropharynx is normal. LYMPHATIC: Shows no submandibular, cervical, supraclavicular adenopathy. CARDIAC: Reveals a regular rate and rhythm with normal S1 and S2. LUNGS: Auscultation of lungs reveals a prolonged expiratory phase with no wheezing. ABDOMEN: Soft and nontender. There is no rebound or guarding. EXTREMITIES: Examination of extremities shows no leg edema or calf tenderness. RADIOGRAPHIC DATA: Chest x-ray and chest CT show some small pulmonary nodules measuring between 1 and 2 mm that are indeterminate. The patient also has some calcification of her coronary arteries. IMPRESSION: 1. Chronic obstructive pulmonary disease with acute exacerbation. 2. Coronary artery disease with unstable angina. 3. Acute kidney injury. 4. Hypokalemia. 5. Gastroesophageal reflux. 6. Pulmonary nodules, all measuring less than 4 mm. PLAN: 1. Cardiology evaluation today including echocardiogram. 2. Continue IV fluids and repeat creatinine. 3. Solu-Medrol IV along with bronchodilators, oxygen and antibiotics. 4. Repeat CT scan of the chest in 1 year. Nodules less than 4 mm carry a very low risk of malignancy. 5. Smoking cessation. 6. GI evaluation. MD SKYLER Mahan/REHAN /[id number]
[2018-05-20] MEDS ORDERED: NITROGLYCERIN 0.4 MG SUBL SL PRN (12:15)
[2018-05-20] MEDS ORDERED: ONDANSETRON HCL INJ 2MG/ML 2ML 2 MG/ML VIAL IV PRN (12:15)
--- NOTE | 2018-05-20 12:30 | NUR ---
PT IV LEAKING,CHANGED TO LT FA 20 GAUGE,TOLERATED WWELL
--- NOTE | 2018-05-20 13:45 | NUR ---
DR SHAH HERE
[2018-05-20 15:25] LABS: CREATINE KINASE MB 2.2 ng/mL (0-5.0)
--- NOTE | 2018-05-20 15:40 | NUR ---
Visit made by the Spiritual Care Department Pastoral Visitor, Marisol Amor. PV provided pastoral presence, prayer, hospitality, and supportive listening. Pastoral Visitor informed pt/family of the scope of [facility] and availability. RYLEY ROACH Inseam Trimmer Spiritual Care Department O: [phone] Pager: [phone] ([phone] number calling from)
--- NOTE | 2018-05-20 17:45 | NUR ---
IN BED RESTING NO FUTHER C/O PAIN.
--- NOTE | 2018-05-20 17:56 | NUR ---
DR FERGUSON HERE
[2018-05-20] MEDS ORDERED: NITROGLYCERIN 2% OINT 1 GM PKT TOP SCH (18:00)
--- NOTE | 2018-05-20 19:00 | NUR ---
Completed BS rounds with morning nurse. Pt alert and orient to name. Lying in bed 45 degrees. Denies pain at this time. No acute distress noted. Call light within reach. Will continue to monitor.
[2018-05-20] MEDS: SUCRALFATE 1 GM TAB PO SCH (20:44)
[2018-05-20] MEDS: DOXYCYCLINE 100MG/NS 100ML 100 ML IV SCH (20:44)
[2018-05-20] MEDS: POLYETHYLENE GLYCOL 3350 17 GM PACK PO SCH (20:44)
[2018-05-20] MEDS: ZOLPIDEM TARTRATE 10 MG TAB PO PRN (21:00)
--- NOTE | 2018-05-20 22:59 | Consultation ---
DATE OF CONSULTATION: Cardiology Consultation DIAGNOSES: 1. Shortness of breath of unknown etiology. 2. Rule out coronary artery disease. 3. History of hypertension. 4. Hyperlipidemia. 5. The patient got some gastrointestinal problem with possible ulcer. HISTORY OF PRESENT ILLNESS: The patient developed shortness of breath even standing up, even walking a short distance for 3 months . She has abdominal isympmtoms and gastroenerolgy follwing the patient.ssues, but no history of myocardial infarction. She does have hypertension and hyperlipidemia. She is on cholesterol medication and antihypertensve medication. Clinically, there is no history of congestive heart failure. Echocardiogram showed ejection fraction 60%. Pulmonary artery pressure, at this time I could not measure because no tricuspid regurgitation. Her EKG is normal except for minor nonspecific changes noted. Troponin is negative. CT of the chest is negative except there is some granuloma noted, At this time, the patient's previous surgeries are appendix surgery, gallbladder surgery, and foot surgery. The patient noat very very active at home and the patient mainly complains of dyspnea. The patient's has heart problem, but there is no history of any GA or stroke in the family. The patient does not appear to be anxious or depressed. According to her, main problem is she does not walk very much because of abdominal symptoms. So at this time, I am going to do Lexiscan stress test. Echocardiogram is normal.,_ recommendations to follw after stress test is performed. In the meantime, continue present medication ordered by Dr. Hayder Bassett. Thank you Dr. Hayder Bassett for this consultation. MD BUFFY Gee/REHAN /[id number] ESTRELLA
[2018-05-21] VITALS (7 sets, daily range): BP systolic 116–145; BP diastolic 66–84
[2018-05-21] MEDS: ALBUTEROL/IPRATROPIUM 3 ML NEB NEB SCH ×4 (01:00→20:00)
[2018-05-21] MEDS: SODIUM CHLORIDE 0.9% 1000ML 1,000 ML IV SCH ×3 (05:29→20:30)
[2018-05-21 06:37] LABS: BASOPHILS % 0.3 % (0.0-1.0); HEMATOCRIT 28.5 % (34.2-44.1); HEMOGLOBIN 9.4 g/dL (12.0-16.0); LYMPHOCYTES # (AUTO) 1.1 (1.0-3.2); LYMPHOCYTES % 15.1 % (18.0-39.1); MONOCYTES # (AUTO) 0.5 (0.2-0.8); MONOCYTES % 6.5 % (4.4-11.3); NEUTROPHILS # (AUTO) 5.6 (2.1-6.9); NEUTROPHILS % 77.7 % (38.7-80.0); PLATELET COUNT 156 x10e3/uL (140-360); RED BLOOD COUNT 3.24 x10e6/uL (3.6-5.1); RED CELL DISTRIBUTION WIDTH 15.2 % (11.7-14.4)
--- NOTE | 2018-05-21 07:00 | NUR ---
SHIFT REPORT GIVEN BY NIGHT RN WHILE ROUNDING BS. PT DENIES NEEDS AT THIS TIME.
[2018-05-21 07:02] LABS: ALANINE AMINOTRANSFERASE 25 IU/L (0-55); ALBUMIN 2.4 g/dL (3.5-5.0); ALBUMIN/GLOBULIN RATIO 1.3 (0.8-2.0); ALKALINE PHOSPHATASE 70 IU/L (40-150); BLOOD UREA NITROGEN 12 mg/dL (7-26); BUN/CREATININE RATIO 15 (6-25); CARBON DIOXIDE 18 mmol/L (22-29); CHLORIDE 118 mmol/L (98-107); EST GLOMERULAR FILTRATION RATE > 60 ML/MIN (60-); GLUCOSE 90 mg/dL (74-118); SODIUM 142 mmol/L (136-145)
[2018-05-21 07:13] LABS: CALCIUM 6.7 mg/dL (8.4-10.2)
[2018-05-21 07:26] LABS: FERRITIN 11.74 ng/mL (4.63-204.00); THYROID STIMULATING HORMONE 0.57 uIU/mL (0.350-4.940)
[2018-05-21] MEDS: PANTOPRAZOLE SOD 40 MG TABEC PO SCH (07:30)
[2018-05-21] MEDS: SUCRALFATE 1 GM TAB PO SCH ×4 (07:30→20:47)
[2018-05-21] MEDS: ASPIRIN 81 MG ENTERIC COATED PO SCH (08:11)
[2018-05-21] MEDS: FAMOTIDINE 20 MG TAB PO SCH ×2 (08:11→20:47)
[2018-05-21] MEDS: POLYETHYLENE GLYCOL 3350 17 GM PACK PO SCH ×2 (08:11→17:31)
[2018-05-21] MEDS: DOXYCYCLINE 100MG/NS 100ML 100 ML IV SCH ×2 (08:15→20:47)
[2018-05-21] MEDS ORDERED: REGADENOSON 0.4 MG/5 ML SYR IV ONE (09:29)
[2018-05-21] MEDS: MORPHINE SULFATE INJ 4 MG/ML INJ 1ML IV PRN ×2 (09:37→20:54)
--- NOTE | 2018-05-21 10:00 | NUR ---
PT OFF THE FLOOR TO RADIOLOGY FOR STRESS TESTING.
--- NOTE | 2018-05-21 12:52 | Diagnostic Imaging Report ---
CT chest with contrast - PE protocol. INDICATION: Chest pain, dyspnea, suspected pulmonary embolism. TECHNIQUE: Thin collimation axial images obtained from the thoracic inlet to the level of the diaphragm after administration of 100 cc of Isovue 370 contrast. Pulmonary embolism protocol was performed. Dose modulation, iterative reconstruction, and/or weight based adjustment of the mA/kV was utilized to reduce the radiation dose to as low as reasonably achievable. RADIATION DOSE: Total DLP: 524.1 mGy*cm Estimated effective dose: (DLP x 0.015 x size factor) mSv CTDIvol has been reviewed. It is below the limits set by the Radiation Protocol Committee (RPC). COMPARISON: CT Chest without contrast 05/19/2018. FINDINGS: Lines: None. Lungs and Pleura: No evidence of pulmonary embolism to the level of the segmental pulmonary arteries. Minimal biapical pleural-parenchymal opacity. Cyst in the right lung apex measures 7 mm. Bilateral tiny pulmonary nodules measuring up to 3 mm in the right upper lobe are unchanged from recent CT on 05/19/2018. No evidence of pneumonia or pulmonary edema. The central airways are patent Heart and Mediastinum: The heart is normal in size. No aortic ectasia or aneurysm. The main pulmonary artery measures 2.5 cm. Trace pericardial fluid. Scattered atherosclerosis in the thoracic aorta, great vessels, and coronary arteries. No evidence of lymphadenopathy. The thyroid gland is unremarkable. Upper Abdomen: Status post cholecystectomy. The partially visualized liver and spleen are unremarkable. Bones/Soft tissues: No acute osseous abnormality. No suspicious lytic or blastic lesions. IMPRESSION: No evidence of pulmonary embolism to the level of the segmental pulmonary arteries. Tiny bilateral pulmonary nodules measuring up to 3 mm are likely benign in a low risk patient. If the patient has a risk factor for malignancy, an optional chest CT in 12 months may be considered. Signed by: Dr. Eduard Rm MD on 05/21/2018 12:49 PM
[2018-05-21] MEDS ORDERED: IOPAMIDOL 370 MG/ML 200 ML INFUS..BTL INJ ONE (13:40)
[2018-05-21] MEDS ORDERED: SODIUM CHLORIDE 0.9% 50ML 50 ML ONE (13:40)
--- NOTE | 2018-05-21 13:58 | Progress Note ---
DATE: The patient is seen in the room. The patient at this time has no chest pain. The patient is still complaining of shortness of breath even with mild walking. At this time, pulmonary workup in progress. Echocardiogram shows ejection fraction is normal and the patient does not have any tricuspid regurgitation, so I cannot assess the pulmonary artery pressure. At this time, I performed Lexiscan stress yesterday. The results will be available tomorrow. Depending upon Lexiscan results, further cardiac workup will be done. Her shortness of breath is mainly related to pulmonary possibly. Dr. Bassett is investigating the pulmonary issues. Cardiac aavlos, the patient does not have systolic or diastolic congestive heart failure. At this time, depending on Lexiscan, further cardiac evaluation will be performed. Thank you, Dr. Bassett for this consultation. MD BUFFY Gee/AALIYAHL /[id number]
[2018-05-21] MEDS ORDERED: POTASSIUM CHLORIDE 20 MEQ TAB CR PO ONE (15:15)
[2018-05-21] MEDS ORDERED: METHYLPREDNISOLONE SOD SUCC 40 MG/ML VIAL 1ML IV ONE (15:30)
--- NOTE | 2018-05-21 19:05 | NUR ---
SHIFT REPORT RECEIVED BY DAY NURSE. PATIENT DENIES NEEDS AT THIS TIME. CALL LIGHT WITHIN REACH AND INSTRUCTED TO CALL FOR ASSISTANCE. PATIENT VERBALIZED UNDERSTANDING.
[2018-05-21] MEDS: ZOLPIDEM TARTRATE 10 MG TAB PO PRN (22:22)
[2018-05-22] VITALS (7 sets, daily range): BP systolic 104–158; BP diastolic 52–84
[2018-05-22] MEDS: ALBUTEROL/IPRATROPIUM 3 ML NEB NEB SCH ×4 (01:00→19:35)
[2018-05-22] MEDS: SODIUM CHLORIDE 0.9% 1000ML 1,000 ML IV SCH ×3 (04:30→19:54)
--- NOTE | 2018-05-22 07:00 | NUR ---
SHIFT REPORT GIVEN BY NIGHT RN WHILE ROUNDING BS. PT DENIES NEEDS AT THIS TIME.
[2018-05-22] MEDS: FAMOTIDINE 20 MG TAB PO SCH (08:06)
[2018-05-22] MEDS: ASPIRIN 81 MG ENTERIC COATED PO SCH (08:06)
[2018-05-22] MEDS: DOXYCYCLINE 100MG/NS 100ML 100 ML IV SCH ×2 (08:06→19:54)
[2018-05-22] MEDS: PANTOPRAZOLE SOD 40 MG TABEC PO SCH (08:06)
[2018-05-22] MEDS: SUCRALFATE 1 GM TAB PO SCH ×4 (08:06→19:54)
[2018-05-22] MEDS: POLYETHYLENE GLYCOL 3350 17 GM PACK PO SCH ×2 (08:06→16:49)
[2018-05-22] MEDS: MORPHINE SULFATE INJ 4 MG/ML INJ 1ML IV PRN ×4 (08:28→23:03)
[2018-05-22] MEDS ORDERED: METHYLPREDNISOLONE SOD SUCC 40 MG/ML VIAL 1ML IV ONE (12:45)
[2018-05-22] MEDS ORDERED: METHYLPREDNISOLONE SOD SUCC 40 MG/ML VIAL 1ML ONE (13:02)
--- NOTE | 2018-05-22 15:13 | Progress Note ---
DATE: Cardiology Progress Note SUBJECTIVE: The patient was seen, clinically examined with all the tests performed from cardiac point of view. The patient came with shortness of breath and the patient referred to Dr. Bassett from forestry conservation worker, Dr. Coleman where she went for abdominal symptoms. The patient came in with shortness of breath. No chest pain. There is some family history of coronary artery disease, predominantly symptoms of shortness of breath, but no chest pain. The patient is here for hypertension. The patient is also taking medications for anxiety and depression. She is on antidepressant medication also. The patient is mildly obese. The patient with history of myocardial infarction. The patient used to smoke about 10 years ago. At this time, mainly complaints of abdominal discomfort, but also shortness of breath in short distance. At this time, the patient's troponin is negative. EKG does not show acute ischemic changes. Echo ejection fraction is 60% and there is no evidence of any valvular abnormalities. However, I could not measure the pulmonary pressure because there is no evidence of tricuspid regurgitation, but P2 is not loud. Lexiscan test is negative. At this point, cardiac point of view, the patient does not have any major issues of symptoms probably related mainly to the COPD, she is an ex-smoker, but we cannot rule out any pulmonary hypertension. At this time, there is no need for further cardiac evaluation. However, if she gets recurrent shortness of breath or any chest pain, probably the patient may need right and left heart catheterization, which we can postpone at this time. There is no need to do at this time. From my point of view, the patient is stable cardiacwise. DIAGNOSES: As follows: 1. Hypertension. 2. Some abdominal symptoms. 3. Chronic obstructive pulmonary disease and ex-smoker. 4. Hyperlipidemia. 5. Anxiety and depression. Thank you Dr. Bassett for this consultation. However, if she gets recurrent shortness and chest pain, probably we will do the invasive procedure including the right and left heart catheterization. Thank you again for this consultation. MD BUFFY Gee/AALIYAHL /[id number]
--- NOTE | 2018-05-22 15:18 | Progress Note ---
DATE: Pulmonary Progress Note SUBJECTIVE: The patient noted some improvement with Solu-Medrol, but still has dyspnea. She reports some headache. She has no fevers. There is minimal cough. PHYSICAL EXAMINATION: VITAL SIGNS: The patient is afebrile. The vital signs are stable. HEENT: Shows no facial swelling or erythema. The nasal mucosa is normal. CARDIAC: Reveals a regular rate and rhythm with normal S1 and S2. LUNGS: Auscultation of lungs reveals clear breath sounds bilaterally. There is a prolonged expiratory phase. ABDOMEN: Soft and nontender. There is no rebound or guarding. EXTREMITIES: Shows no leg edema or calf tenderness. IMPRESSION: 1. Chronic obstructive pulmonary disease with acute exacerbation. 2. Atypical chest pain. 3. Irritable bowel syndrome. 4. Gastroesophageal reflux. PLAN: 1. The patient will receive Solu-Medrol again today. 2. Begin Spiriva once a day and continue nebulizers as needed for immediate relief. 3. Tentative discharge tomorrow in the a.m. Hayder Bassett MD [facility]/MODL /[id number]
--- NOTE | 2018-05-22 15:33 | Consultation ---
DATE OF CONSULTATION: 05/20/2018 HISTORY OF PRESENT ILLNESS: Ms. Zuñiga is a 62-year-old lady with history of hypertension, hyperlipidemia, and depression. I have seen her in the office for abdominal discomfort, epigastric in location with some occasional nausea and vomiting. She had risk for peptic ulcer disease, using nonsteroidal anti-inflammatory drugs and caffeine use. She had upper endoscopy in March 2017, showed small hiatal hernia, severe mucosal erythema of the stomach suggestive of gastritis. The biopsies were negative for Helicobacter pylori. At that time, we evaluated her in the office. We started her on Carafate in addition to her acid pump inhibitor. We ordered some blood tests on her and she was supposed to come back for followup. When she showed up in the hospital, was short of breath and chest discomfort, and she is being worked up for possible cardiac origin and she told me that on the next day, which is May 21, she is supposed to have stress test. From the GI standpoint, has no any change from the time that I saw her in the office. She has had colonoscopy for screening in the past and she is due for repeat in 2024. PAST SURGICAL HISTORY: She had right foot surgery in April 2016. She had appendectomy, cholecystectomy, laparoscopy done, and colonoscopy in 2013. SOCIAL HISTORY: She is unemployed. She is single. She has 3 kids. She does not drink or smoke. ALLERGIES: CODEINE AND SULFATE. MEDICATIONS: In the hospital are morphine, MiraLax, Carafate, Protonix, doxycycline, aspirin, DuoNeb, Ambien, Zofran, and Nitrostat. PHYSICAL EXAMINATION: VITAL SIGNS: Temperature 98, pulse 108, respiratory rate 20, and 92% saturation. GENERAL: She is awake, alert, and oriented. Hemodynamically stable. NECK: Supple. LUNGS: Clear to auscultation. HEART: Regular rate and regular rhythm. Occasional irregular beat. ABDOMEN: Obese, soft, and nontender. No acute sign. No mass. No organomegaly. LABORATORY DATA: White cell count normal, hemoglobin 9, and hematocrit 28. Chemistry: Sodium 142, potassium 3, which is being replaced; BUN 12 and creatinine 0.8. Her liver function is normal. Her TSH is normal. Because of her anemia, I am ordering iron saturation, ferritin, B12, folate, RBC, and reticulocyte count. IMPRESSION: From Gastroenterology standpoint, no change in management of workup at this point. I will continue her MiraLax for constipation. I will add Carafate to her acid pump inhibitor. We will follow from a distant. Yadira Coleman MD RD/REHAN /[id number]
--- NOTE | 2018-05-22 15:53 | Myoview Stress Test ---
DATE OF STUDY: 05/21/2018 09:04:00 Stress Test - Treadmill ONLY STUDY: Nuclear gated myocardial perfusion scan. DETAILS OF STUDY: Nuclear gated myocardial perfusion scan performed as per protocol at [facility]. Lexiscan injected 0.4 mg intervenously stress agent. Myoview injected 11 mCi for resting protocol and 30 mCi for stress protocol. IMPRESSION: 1. Normal gated myocardial perfusion scan. 2. Left ventricular ejection fraction is 60% to 65%. 3. No ischemia or scar noted. Sergey Pritchard MD [facility]/MODL /[id number]
[2018-05-22] MEDS ORDERED: SODIUM CHLORIDE 0.9% 50ML 50 ML ONE (16:46)
[2018-05-22] MEDS ORDERED: IOPAMIDOL 370 MG/ML 200 ML INFUS..BTL INJ ONE (16:46)
--- NOTE | 2018-05-22 18:04 | Diagnostic Imaging Report ---
EXAM: CT Abdomen and Pelvis WITH contrast INDICATION: ^IRON DEF ANEMIA , CT ENTEROGRAPHY PLEASE ^[id number] ^[id number] ^N COMPARISON: CT chest 05/21/2018 TECHNIQUE: Abdomen and pelvis were scanned utilizing a multidetector helical scanner from the lung base to the pubic symphysis after administration of IV contrast. Coronal and sagittal reformations were obtained. Routine protocol was performed. Scan was performed when during portal venous phase. IV CONTRAST: 100 mL of Isovue-300 ORAL CONTRAST: Volument RADIATION DOSE: Total DLP: 657.3 mGy*cm Estimated effective dose: (DLP x 0.015 x size factor) mSv COMPLICATIONS: None FINDINGS: LINES and TUBES: None. LOWER THORAX: Unremarkable HEPATOBILIARY: No focal hepatic lesions. No biliary ductal dilation. GALLBLADDER: Cholecystectomy. SPLEEN: No splenomegaly. PANCREAS: No focal masses or ductal dilatation. ADRENALS: No adrenal nodules KIDNEYS/URETERS: Kidneys enhance symmetrically. No hydronephrosis. No cystic or solid mass lesions. No stones. GI TRACT: No abnormal distention, wall thickening, or evidence of bowel obstruction. Appendix is not visualized. PELVIC ORGANS/BLADDER: Unremarkable. LYMPH NODES: No lymphadenopathy. VESSELS: Mild atherosclerotic calcifications of the abdominal aorta without aneurysm. Moderate calcifications of the proximal right renal artery and mild calcifications of the proximal left renal artery. The celiac trunk, SMA, and LOVE appear patent. PERITONEUM / RETROPERITONEUM: No free air or fluid. BONES: Unremarkable. SOFT TISSUES: Unremarkable. IMPRESSION: No acute abnormalities in the abdomen and pelvis. Specifically, unremarkable small and large bowel. Cholecystectomy. Signed by: Dr. Zaira Baez M.D. on 05/22/2018 6:01 PM
--- NOTE | 2018-05-22 19:00 | NUR ---
SHIFT REPORT RECEIVED BY DAY NURSE. PATIENT DENIES NEEDS AT THIS TIME. CALL LIGHT WITHIN REACH AND INSTRUCTED TO CALL FOR ASSISTANCE. PATIENT VERBALIZED UNDERSTANDING.
[2018-05-22] MEDS: ZOLPIDEM TARTRATE 10 MG TAB PO PRN (22:54)
[2018-05-23] VITALS: BP 127/67
[2018-05-23] MEDS: ALBUTEROL/IPRATROPIUM 3 ML NEB NEB SCH ×2 (01:10→07:40)
--- NOTE | 2018-05-23 02:35 | Progress Note ---
DATE: 05/22/2018 Progress Note Ms. Zuñiga is doing well. Awake, alert, and oriented, hemodynamically stable. She is undergoing workup for her heart/lung issues. GI standpoint, she is anemic. Her hemoglobin is 9.4 and hematocrit 28. Her anemia workup revealed 12. RBC folate is still pending, but iron saturation is very low at 9%. Her celiac disease screening is still pending and TSH is normal. GI workup, she had colonoscopy several years ago and she is due for a repeat in 2024. Her upper endoscopy last was done in March 2017, shows small hiatal hernia, severe gastritis and biopsy was pylori. My plan for her today is to start her on vitamin C and iron. Wait for the celiac disease results and repeat her upper endoscopy and possible small bowel evaluation, which can be done as an outpatient. She is tolerating her diet well and she has been going to the rest room. Yadira Coleman MD RD/MODL /[id number]
[2018-05-23 04:00] VITALS: BP 121/59
[2018-05-23] MEDS: SODIUM CHLORIDE 0.9% 1000ML 1,000 ML IV SCH (04:30)
[2018-05-23 07:43] VITALS: BP 139/76
[2018-05-23 07:51] VITALS: BP 139/76
[2018-05-23] MEDS: POLYETHYLENE GLYCOL 3350 17 GM PACK PO SCH (08:27)
[2018-05-23] MEDS: SUCRALFATE 1 GM TAB PO SCH (08:27)
[2018-05-23] MEDS: ASPIRIN 81 MG ENTERIC COATED PO SCH (08:27)
[2018-05-23] MEDS: PANTOPRAZOLE SOD 40 MG TABEC PO SCH (08:27)
[2018-05-23] MEDS ORDERED: ASCORBIC ACID 500 MG TAB PO SCH (09:00)
[2018-05-23] MEDS ORDERED: FERROUS SULFATE 325 MG TAB PO SCH (09:00)
[2018-05-23] MEDS ORDERED: DOXYCYCLINE HY100 MG PO (09:27)
[2018-05-23] MEDS ORDERED: PREDNISONE10 MG PO (09:28)
--- NOTE | 2018-05-23 11:28 | NUR ---
Pt discharged home at this time. All discharge instructions given to pt an vebalized understanding of discharged medications.
--- NOTE | 2018-05-24 06:12 | Discharge Summary ---
DISCHARGE MEDICATIONS: 1. Prednisone 10 mg p.o. daily x5 days. 2. Doxycycline 100 mg p.o. b.i.d. for 5 days. 3. Anoro Ellipta one inhalation q.a.m. 4. Albuterol nebulizer 3 times a day as needed for wheezing or dyspnea. RADIOGRAPHIC STUDIES: 1. A chest CT with pulmonary embolism protocol showed no evidence of PE. There were 2 tiny pulmonary nodules measuring 3 mm in the right upper lobe. They were felt to be benign. 2. Abdominal pelvic CT showed changes consistent with cholecystectomy with no acute disease. 3. Nuclear stress test showed no ischemic changes. 4. Echocardiogram showed a normal ejection fraction and no valvular abnormalities. CONSULTING PHYSICIANS: 1. Dr. Pritchard of Cardiology. 2. Dr. Coleman of Gastroenterology. DISCHARGE DIAGNOSES: 1. Chronic obstructive pulmonary disease with acute exacerbation. 2. Irritable bowel syndrome. 3. Gastroesophageal reflux. 4. Atypical chest pain. HISTORY OF PRESENT ILLNESS: The patient is a 62-year-old woman. She notes gradual dyspnea with exertion, increasing over the past several months to years. It has been particularly bad over the past several months. She notes mild cough and small amounts of phlegm production. She also reports some chest pain on the right side that is not related to exertion. HOSPITAL COURSE: The patient was admitted. She was seen in consultation by Cardiology. Cardiac enzymes were negative and serial EKGs were negative. A subsequent echocardiogram and nuclear stress tests were within normal limits. The patient was also seen by her established health plan specialist, Dr. Coleman. So far, she has a diagnosis of irritable bowel syndrome and esophageal reflux. CT scan of the abdomen and pelvis showed no active disease. The patient had improvement with Solu-Medrol and bronchodilators, suggesting COPD as a probable etiology of her dyspnea. She also has a remote smoking history. She felt better at the time of discharge. She will go home with Anoro inhaler once a day along with nebulizers as needed. DISPOSITION: The patient was discharged home. She will follow up with Dr. Bassett in 1 week. MD SKYLER Mahan/REHAN /[id number]
[2018-05-24 06:14] LABS: ENDOMYSIAL ANTIBODIES, IGA Negative (Negative)
== END 2018-05-23 11:33 | disposition home or self-care (01) | DRG 191 ==
LOC: ER 15:37 → ERHOLD 20:11 → MED/SURG 22:36 → OBSVTOIN 05-20 08:43 → MED/SURG3 05-20 11:20
PROVIDERS: ADMIT Internal Medicine Critical Care Medicine; ATTEND Internal Medicine Critical Care Medicine
DX: J44.1 Chronic obstructive pulmonary disease with (acute) exacerbation (principal); N17.9 Acute kidney failure, unspecified; E87.1 Hypo-osmolality and hyponatremia; K58.9 Irritable bowel syndrome, unspecified; K21.9 Gastro-esophageal reflux disease without esophagitis; R07.89 Other chest pain; I10 Essential (primary) hypertension; E78.5 Hyperlipidemia, unspecified; D64.9 Anemia, unspecified; F41.8 Other specified anxiety disorders; E66.9 Obesity, unspecified; R91.8 Other nonspecific abnormal finding of lung field; I25.2 Old myocardial infarction; Z87.891 Personal history of nicotine dependence; Z88.5 Allergy status to narcotic agent; Z88.2 Allergy status to sulfonamides; Z68.28 Body mass index [BMI] 28.0-28.9, adult
CPT/HCPCS: 36415; 71046; 71250; 71260; 74177; 78452; 80053; 80061; 81001; 82150; 82550; 82553; 82607; 82728; 82747; 82784; 83516; 83540; 83880; 84443; 84466; 84484; 85025; 85045; 85379; 85610; 85730; 86256; 93005; 93017; 93306; 94640; 96376; 99284; A9502; G0378; J2270; J2405; J2920; J7030; Q9967

== ENCOUNTER → 2018-07-22 | Outpatient (CLI) | payer OTHER ==
[~2018-07-22] MED LIST: DOXYCYCLINE HY100 MG PO; PREDNISONE10 MG PO
--- NOTE | 2018-07-22 18:13 | Diagnostic Imaging Report ---
CT MAXIO FAC/PARANAS WO HISTORY: Headache, sinusitis COMPARISON: None. TECHNIQUE: CT of the sinuses was performed without intravenous contrast. Coronal and sagittal reformations were created. One or more of the following dose reduction techniques were used: Automated exposure control, adjustment of the mA and/or kV according to patient size, and/or utilization of iterative reconstruction technique. DISCUSSION: There is minimal mucosal thickening in the right posterior ethmoid air cells. Otherwise, the paranasal sinuses, major drainage pathways, and nasal cavities are clear. Other: Nasal septum: At midline with small anterior left-sided spur. Agger Nasi: Clear bilaterally. Turbinates: Both middle and superior turbinates are partially pneumatized. Janett cells: None. Lamina papyracea: Intact. Cribriform plates: Symmetric. Up to 5 mm deep to the fovea ethmoidalis. Olfactory recesses: Clear. Optic canals: Not dehiscent. Onodi cells: None. Sphenoid sinuses: The lateral recesses are aerated. The sphenoid septum is deviated to the left and inserts on the left internal carotid artery osseous covering. The internal carotid arteries minimally bulge into the sphenoid sinuses. The internal carotid arteries are from the sphenoid sinuses by a thin plate of bone (measuring up to 1 mm). Orbits: Unremarkable. Intracranial compartment: Mild periventricular white matter hypodensities are likely chronic microvascular ischemic changes. Mild carotid siphon calcifications are present. Temporal bones: There are mild to moderate degenerative changes in the temporomandibular joints, left greater than right. Other visualized bones: There are mild degenerative changes in the spine. Soft tissues: Mild bilateral carotid bulb calcifications are present IMPRESSION: 1. Minimal mucosal thickening in the right posterior ethmoid air cells. 2. Otherwise, the paranasal sinuses, major drainage pathways, and nasal cavities are clear. Signed by: Dr. Abelardo Wiley M.D. on 07/22/2018 6:10 PM
== END ==
LOC: CT 16:41
PROVIDERS: ATTEND Internal Medicine Critical Care Medicine
DX: J32.9 Chronic sinusitis, unspecified (principal)
CPT/HCPCS: 70486